=== PATIENT | female | born 1980 | race Caucasian/White ===

== ENCOUNTER 2022-12-04 19:28 | Inpatient (IN) | payer BC, MEDICAID ==
[~2022-12-04] VITALS: Ht 167.6 cm; Wt 87.0 kg
[2022-12-04 20:47] LABS: BASOPHILS % (AUTO) 0.6 % (0.0-2.0); EOSINOPHILS % (AUTO) 3.8 % (1.0-6.0); HEMATOCRIT 47.2 % (36-46); HEMOGLOBIN 16.3 g/dL (12.0-16.0); LYMPHOCYTES # (AUTO) 0.8 K/uL (1.0-4.8); LYMPHOCYTES % (AUTO) 12.7 % (22.0-44.0); MEAN CORPUSCULAR HEMOGLOBIN 32.9 pg (26.0-34.0); MEAN CORPUSCULAR HGB CONC 34.6 G/dL (31.0-37.0); MEAN CORPUSCULAR VOLUME 95 fL (80-100); MONOCYTES # (AUTO) 0.5 K/uL (0.1-1.0); NEUTROPHILS % (AUTO) 74.9 % (40.0-70.0); PLATELET COUNT (AUTO) 176 K/uL (150-450); RED BLOOD CELL COUNT(AUTO) 4.96 MIL/uL (4.00-5.20)
[2022-12-04 21:04] LABS: ANION GAP 8 mmol/L (8-16); CALCIUM, TOTAL 8.6 mg/dL (8.8-10.5); CARBON DIOXIDE 27 mmol/L (22-29); CHLORIDE 102 mmol/L (98-107); CREATININE 0.99 mg/dL (0.60-1.30); GLOMERULAR FILTR. RATE CALC > 60 mL/min (>60); GLUCOSE,RANDOM 100 mg/dL (70-110); POTASSIUM 4.5 mmol/L (3.5-5.1); SODIUM SERUM 137 mmol/L (136-145)
[2022-12-04 21:10] LABS: ALANINE AMINOTRANSFERASE 30 U/L (12-78); ALBUMIN 3.5 g/dL (3.4-5.0); ALKALINE PHOSPHATASE 108 U/L (46-116); ASPARTATE AMINOTRANSFERASE 19 U/L (15-37); BILIRUBIN,TOTAL 0.5 mg/dL (0.1-1.0); HCG,QUANTITATIVE < 1 mIU/mL (0-6); LIPASE 29 U/L (16-77); TOTAL PROTEIN, SERUM 7.1 g/dL (6.4-8.2)
[2022-12-04] MEDS ORDERED: SODIUM CHLORIDE 0.9% 1,000 ML IV ONE ×2 (21:30→22:00)
[2022-12-04] MEDS ORDERED: ONDANSETRON HCL 4 MG/2 ML VIAL IVP ONE (21:30)
[2022-12-04] MEDS ORDERED: HYDROmorphone HCL 2 MG/ML SYRINGE IVP ONE (21:30)
[2022-12-04] MEDS ORDERED: DiphenhydrAMINE HCL 50 MG/ML VIAL IVP ONE (22:00)
[2022-12-04] MEDS ORDERED: SODIUM CHLORIDE 0.9% 100 ML ONE (22:56)
[2022-12-04] MEDS ORDERED: IOHEXOL 350 MG/ML 100 ML VIAL ONE (22:56)
[2022-12-05 01:13] LABS: APPEARANCE,URINE HAZY (CLEAR); BILIRUBIN,URINE NEGATIVE (NEGATIVE); GLUCOSE, URINE (UA) NEGATIVE (NEGATIVE); KETONES,URINE NEGATIVE (NEGATIVE); LEUKOCYTE ESTERASE ,URINE LARGE (NEGATIVE); NITRATE,URINE POSITIVE (NEGATIVE); OCCULT BLOOD,URINE NEGATIVE (NEGATIVE); PROTEIN,URINE TRACE mg/dL (NEGATIVE); SPECIFIC GRAVITIY, URINE 1.043 (1.003-1.030); UROBILINOGEN,URINE <=1.0 mg/dL (<=1.0)
[2022-12-05 01:33] LABS: BACTERIA,URINE Moderate /HPF (None Seen); RBC,URINE 0-2 /HPF (0-2); SQUAMOUS EPITHELIAL CELL,UR Few /LPF (None Seen)
[2022-12-05] MEDS ORDERED: SODIUM CHLORIDE 0.9% 1,000 ML IV ONE (01:45)
[2022-12-05] MEDS ORDERED: FentaNYL CITRATE PF 100 MCG/2 ML VIAL IVP ONE (01:45)
[2022-12-05] MEDS ORDERED: DiphenhydrAMINE HCL 50 MG/ML VIAL IVP ONE (01:45)
[2022-12-05 02:30] VITALS: BP 113/64; PULSE 95; RESP 20; TEMP 99.3
[2022-12-05] MEDS ORDERED: HYDROmorphone HCL 2 MG/ML SYRINGE IVP PRN ×2 (06:15→10:45)
[2022-12-05 07:30] VITALS: BP 111/59; PULSE 79; RESP 20; TEMP 99.9
[2022-12-05] MEDS ORDERED: MAGNESIUM HYDROXIDE SUSPENSION 30 ML UDCUP PO PRN (10:45)
[2022-12-05] MEDS ORDERED: SODIUM CHLORIDE 0.9% 1,000 ML IV SCH (10:45)
[2022-12-05] MEDS ORDERED: ONDANSETRON HCL 4 MG/2 ML VIAL IVP PRN (10:45)
[2022-12-05] MEDS ORDERED: ZOLPIDEM TARTRATE 5 MG TABLET PO PRN (10:45)
[2022-12-05] MEDS ORDERED: ACETAMINOPHEN 325 MG TABLET PO PRN (10:45)
[2022-12-05] MEDS ORDERED: PANTOPRAZOLE SODIUM 40 MG/VIAL IVP SCH (10:45)
[2022-12-05] MEDS ORDERED: CefTRIAXone 1 GM/DEXTROSE 50 ML IV SCH (11:00)
[2022-12-05] MEDS ORDERED: HEPARIN SODIUM,PORCINE 5,000 UNITS/ML VIAL SQ SCH (16:00)
[2022-12-05] MEDS ORDERED: DOCUSATE SODIUM 100 MG CAPSULE PO SCH (21:00)
== END 2022-12-05 13:44 | disposition left against medical advice (07) | DRG 254 ==
LOC: EMS 19:30 → 6S 12-05 02:11
PROVIDERS: ADMIT Internal Medicine; ATTEND Internal Medicine
DX: K31.84 Gastroparesis (principal); F10.90 Alcohol use, unspecified, uncomplicated; N39.0 Urinary tract infection, site not specified; F15.90 Other stimulant use, unspecified, uncomplicated; Z53.21 Procedure and treatment not carried out due to patient leaving prior to being seen by health care provider; F17.210 Nicotine dependence, cigarettes, uncomplicated; Z90.49 Acquired absence of other specified parts of digestive tract; Z98.891 History of uterine scar from previous surgery; Z88.5 Allergy status to narcotic agent
CPT/HCPCS: 71045; 74177; 80053; 81001; 83690; 84702; 85025; 87086; 87186; 93005; 99285; G0378; J0696; J1170; J1200; J2405; J3010; J7030; J7050; Q9967; 36415-L1; 36415-TC